=== PATIENT | female | born 1955 | race Caucasian/White ===

== ENCOUNTER → 2017-09-27 | Outpatient (CLI) | payer OTHER ==
[~2017-09-27] MED LIST: ALLEGRA180 MG PO; ATORVASTATIN; BIO-TN500 MCG PO; CHLORHEXIDINE PO; EFFEXOR 3737.5 MG/TA PO; EFFEXOR-XR150 MG PO; LORTAB 5/500 501 TAB PO; NEXIUM40 MG PO; NORCO 325 MG-7.1 TAB PO; OLEPTRO150 MG PO; PRESTIQ PO; PREVACID 30MG30 MG PO; PROBIOTIC FORMU1 CAP PO; SENNA CONCENTR8.6 MG PO; STOOL SOFTENER100 MG PO; TRAZODONE HCL100 MG PO; VYVANSE PO; WELLBUTRIN XL300 MG PO; ZESTRIL 20MG TA20 MG PO; [UNRECOGNIZED DRUG - OTHER]; [UNRECOGNIZED DRUG - OTHER]; [UNRECOGNIZED DRUG - OTHER] PO
== END ==
LOC: MC.RAD 15:20
DX: Z12.31 Encounter for screening mammogram for malignant neoplasm of breast (principal)

== ENCOUNTER → 2018-01-21 | Outpatient (CLI) | payer OTHER | LOC: COL.RAD 09:19 | DX: M47.816 Spondylosis without myelopathy or radiculopathy, lumbar region (principal); Z95.0 Presence of cardiac pacemaker ==

== ENCOUNTER → 2020-05-10 | Outpatient (CLI) | payer OTHER | LOC: MC.RAD 13:46 | DX: Z12.31 Encounter for screening mammogram for malignant neoplasm of breast (principal) ==

== ENCOUNTER → 2020-08-31 | Outpatient (CLI) | payer OTHER | LOC: BHSO 10:58 | DX: F33.42 Major depressive disorder, recurrent, in full remission (principal) ==

== ENCOUNTER → 2021-06-07 | Outpatient (CLI) | payer MEDICARE | LOC: MC.RAD 14:20 | DX: Z12.31 Encounter for screening mammogram for malignant neoplasm of breast (principal) ==

== ENCOUNTER → 2022-06-13 | Outpatient (CLI) | payer MEDICARE | LOC: MC.RAD 10:53 | DX: Z12.31 Encounter for screening mammogram for malignant neoplasm of breast (principal) ==

== ENCOUNTER → 2024-06-22 | Outpatient (CLI) | payer MEDICARE ==
[~2024-06-22] MED LIST changes: +ZOFRAN ODT4 MG PO
== END ==
LOC: MC.RAD 14:07
DX: Z12.31 Encounter for screening mammogram for malignant neoplasm of breast (principal)